=== PATIENT | female | born 1985 | race Hispanic/Latino ===

== ENCOUNTER 2019-11-18 10:03 | Day surgery (SDC) | payer MEDICAID ==
[2019-11-18 10:29] VITALS: BP 140/85; TEMP 98.4; BMI 54.9
--- NOTE | 2019-11-18 12:32 | ULT ---
ULTRASOUND OBSTETRICAL LIMITED: DATE: 11/18/2019 HISTORY: 34-year-old patient with pregestational type 2 diabetes in third trimester. FINDINGS: number: shelby lie: Cephalic Maternal cervix: Obscured Placenta: Anterior. No placenta previa. Amniotic fluid volume: URSULA = 7cm heart rate: 133 bpm anatomy not evaluated biometry: Biparietal diameter (BPD): 8.5 cm 34 w 1 d Head circumference (HC): 31.3 cm 35 w 0 d Abdominal circumference (AC): 32.7 cm 36 w 4 d Femur length (FL): 6.7 cm 34 w 2 d Average ultrasound age (AUA): 35 w 0 d Estimated date of delivery (RASHARD): 12/23/2019 Estimated weight (EFW): 2711 g +/- 401 g IMPRESSION: 1) Live 3rd trimester intrauterine gestation. 2) Estimated gestational age of 35 weeks, 0 days 3) cephalic lie. 4) URSULA 7 cm
--- NOTE | 2019-11-18 12:40 | ULT ---
ULTRASOUND BIOPHYSICAL PROFILE: DATE: 11/18/2019 HISTORY: 34-year-old female in third trimester with pregestational type 2 diabetes FINDINGS: breathin tone: 2 movement: 2 Amniotic fluid volume: 2 IMPRESSION: Normal biophysical profile score of 8 out of 8, excluding the nonstress test.
== END 2019-11-18 13:02 | disposition home or self-care (01) ==
LOC: L&D/OP 10:03
PROVIDERS: ATTEND Family Medicine
DX: O24.313 Unspecified pre-existing diabetes mellitus in pregnancy, third trimester (principal); Z3A.35 35 weeks gestation of pregnancy
CPT/HCPCS: 76815; 76819; 99282

== ENCOUNTER 2019-11-29 09:13 | Day surgery (SDC) | payer MEDICAID ==
[2019-11-29] MEDS ORDERED: hydrALAZINE 20 MG/ML VIAL SLOW IVP PRN (09:37)
[2019-11-29 09:50] VITALS: BP 141/89; TEMP 98.6; BMI 54.5
[2019-11-29 10:20] LABS: Creatinine, Urine 29.88 mg/dL (47-110); Protein, Urine Random Quant Less than 10 mg/dL (1-14)
--- NOTE | 2019-11-29 10:43 | ULT ---
US Biophysical Profile: 11/29/2019 9:38 AM CLINICAL HISTORY: Gestational diabetes. 38 weeks gestation.. COMPARISON: None. FINDINGS: heart rate: 145 bpm. URSULA: 6.1 cm Biophysical profile: 8 of 8 The placenta is anterior in location. The fetus is in vertex presentation. IMPRESSION: Normal biophysical profile
[2019-11-29 11:19] LABS: #Basophils 0.1 thou/uL (0.0-0.2); #Eosinphils 0.1 thou/uL (0.0-0.7); #Lymphocytes 1.9 thou/uL (1.20-3.40); #Monocytes 0.5 thou/uL (0.11-0.59); #Neutrophils 5.8 thou/uL (1.40-6.50); %Basophils 0.6 % (0.0-1.0); %Eosinophils 1.6 % (0.0-10.0); %Lymphocytes 22.3 % (21.0-51.0); %Monocytes 5.9 % (0.0-10.0); %Neutrophils 69.6 % (42.0-75.0); Mean Corpuscular HGB CONC 32.6 g/dL (32.0-36.0); Mean Corpuscular Hemoglobin 29.2 pg (27.0-31.0); Mean Corpuscular Volume 89.7 fL (78.0-98.0); Mean Platelet Volume 10.3 fL (7.4-10.4); Platelet Count 181 thou/uL (130-400); Red Blood Cell (RBC) Count 4.45 mill/uL (4.20-5.40); White Blood Cell (WBC) Count 8.4 thou/uL (4.8-10.8)
[2019-11-29 11:40] LABS: ALT (SGPT) 15 U/L (8-55); AST (SGOT) 19 U/L (5-34); Albumin 3.3 g/dL (3.5-5.0); Alkaline Phosphatase 133 U/L (40-110); Anion Gap 13 mmol/L (10-20); BUN (Urea Nitrogen) 10 mg/dL (7.0-18.7); Bilirubin, Total 0.5 mg/dL (0.2-1.2); Calc. Creatinine Clearance 262 mL/min (70-130); Calcium 8.9 mg/dL (7.8-10.44); Carbon Dioxide 19 mmol/L (22-29); Chloride 106 mmol/L (98-107); Estimated GFR-MDRD Greater than 90; Globulin 3.3 g/dL (2.4-3.5); Glucose 76 mg/dL (70-105); Potassium 4.1 mmol/L (3.5-5.1); Protein, Total 6.6 g/dL (6.0-8.3); Sodium 134 mmol/L (136-145)
--- NOTE | 2019-11-30 09:33 | SS ---
DATE OF ADMISSION: 11/29/2019 DATE OF DISCHARGE: 11/29/2019 Labor and Delivery Triage Note REGULAR PHYSICIAN: Filiberto Mixon MD EVALUATING PHYSICIAN: Carlitos Kyle MD CHIEF COMPLAINT: Sent from Dr. Mixon's office for evaluation. HISTORY OF PRESENT ILLNESS: Ms. Elliot Francois is a 34-year-old , G6, P3, with an estimated date of confinement of 12/28/2019, who presents from Dr. Mixon's office for evaluation. She had had a mildly elevated blood pressure there and is diabetic and he asked that she has been sent here for evaluation. She denies contractions, ruptured membranes, vaginal bleeding, or decreased movement. PAST OBSTETRICAL HISTORY: Includes 3 vaginal deliveries at term. PAST MEDICAL HISTORY: Insulin-requiring diabetes. PAST SURGICAL HISTORY: None. CURRENT MEDICATIONS: 1. vitamins. 2. Levemir 20 q.a.m., 22 q.p.m. 3. NovoLog 15 units given t.i.d. ALLERGIES: NO KNOWN ALLERGIES. SOCIAL HISTORY: Denies tobacco, alcohol, or drug use. FAMILY HISTORY: Unremarkable. REVIEW OF SYSTEMS: Denies nausea, vomiting, fever, chills, ruptured membranes, or vaginal bleeding. PHYSICAL EXAMINATION: VITAL SIGNS: In triage, her blood pressures are consistently 130s/80s. Her last blood pressure is 135/80. GENERAL: She is pleasant and in no acute distress. ABDOMEN: Soft, nontender, and gravid. heart rate tracing is stable, but she is difficult to trace. No decelerations are seen. PELVIC: Deferred. LABORATORY: White count 8.4, hemoglobin and hematocrit 13.0 and 39.9. Platelet count 181,000. Chemistry shows a BUN of 10, a creatinine of 0.54. Glucose is 76, total bilirubin 0.5, AST and ALT are 19 and 15 respectively. Urine random total protein is less than 10. IMAGING: Biophysical profile is 8/8 with an URSULA of 6.1. ASSESSMENT: 1. Thirty-six week intrauterine . 2. Diabetes, on insulin, appears well controlled. 3. Reassuring biophysical profile today. PLAN: Patient will be dismissed to home. She was given PIH precautions and will follow up with Dr. Mixon for her next scheduled visit. Dr. Mixon was notified of the assessment and laboratory evaluation. Job ID: [id number]
== END 2019-11-29 11:55 | disposition home or self-care (01) ==
LOC: L&D/OP 09:13
PROVIDERS: ATTEND Family Medicine
DX: O99.89 Other specified diseases and conditions complicating pregnancy, childbirth and the puerperium (principal); R03.0 Elevated blood-pressure reading, without diagnosis of hypertension; O24.414 Gestational diabetes mellitus in pregnancy, insulin controlled; O09.523 Supervision of elderly multigravida, third trimester; Z3A.36 36 weeks gestation of pregnancy; Z79.4 Long term (current) use of insulin
CPT/HCPCS: 36415; 76819; 80053; 82570; 84156; 85025; 99283

== ENCOUNTER 2019-12-03 08:38 | Outpatient (CLI) | payer MEDICAID, OTHER ==
[2019-12-03 17:19] LABS: SARS-CoV-2 MS2 Positive; SARS-CoV-2 N Gene Negative; SARS-CoV-2 S Gene Negative; SARS-CoV-2 by NAA Not Detected (NotDetected); SARS-CoV-2 orf1ab Negative
== END 2019-12-03 08:39 | disposition home or self-care (01) ==
LOC: LABSCS 08:38
PROVIDERS: ATTEND Family Medicine
DX: Z20.828 Contact with and (suspected) exposure to other viral communicable diseases (principal)
CPT/HCPCS: 87635; U0003

== ENCOUNTER 2019-12-06 19:30 | Inpatient (IN) | payer MEDICAID, SELFPAY ==
[~2019-12-06 19:30] MED LIST: Bupivacaine 0.25% HCL 30 ML VIAL ONE
[2019-12-06] MEDS ORDERED: Butorphanol Tartrate 1 MG/ML VIAL SLOW IVP PRN (21:45)
[2019-12-06] MEDS ORDERED: Lidocaine 1% (PF) 30 ML VIAL SC PRN ×2 (21:45)
[2019-12-06] MEDS ORDERED: HYDROcodone/Acetaminophen 5/325 mg Tablet PO PRN (21:45)
[2019-12-06] MEDS ORDERED: Promethazine HCl 25 MG/ML VIAL IM PRN (21:45)
[2019-12-06] MEDS ORDERED: Penicillin G Potassium 5 MILL.UNITS in Sodium Chloride 0.9% 100 ML IVPB SCH (21:45)
[2019-12-06] MEDS ORDERED: Ondansetron PF 4 MG/2 ML Vial IVP PRN (21:45)
[2019-12-06] MEDS ORDERED: Ibuprofen 800 MG TAB PO PRN (21:45)
[2019-12-06] MEDS ORDERED: NS / Oxytocin 40 units/1000ml 1,000 ML IV PRN (21:45)
[2019-12-06] MEDS ORDERED: Misoprostol 200 MCG TAB PR PRN (21:45)
[2019-12-06] MEDS ORDERED: hydrALAZINE 20 MG/ML VIAL SLOW IVP PRN (21:45)
[2019-12-06] MEDS ORDERED: NS w/ Oxytocin 10 units 500 ML IV SCH (21:45)
[2019-12-06] MEDS ORDERED: Diphenoxylate HCl/Atropine Tablet PO PRN (21:45)
[2019-12-06] MEDS ORDERED: Carboprost 250 MCG/ML AMP IM PRN (21:45)
[2019-12-06 21:49] VITALS: BMI 54.5
[2019-12-06] MEDS: Lactated Ringer's 1,000 ML IV SCH (22:18)
[2019-12-06 22:29] LABS: Hemoglobin 11.7 g/dL (12.0-16.0); Mean Corpuscular HGB CONC 33.3 g/dL (32.0-36.0); Mean Corpuscular Hemoglobin 29.6 pg (27.0-31.0); Mean Platelet Volume 10.5 fL (7.4-10.4); Platelet Count 158 thou/uL (130-400); RBC Distribution Width 13.9 % (11.5-14.5); Red Blood Cell (RBC) Count 3.95 mill/uL (4.20-5.40); White Blood Cell (WBC) Count 9.2 thou/uL (4.8-10.8)
[2019-12-06 22:45] LABS: ALT (SGPT) 15 U/L (8-55); AST (SGOT) 17 U/L (5-34); Alkaline Phosphatase 139 U/L (40-110); Anion Gap 15 mmol/L (10-20); BUN (Urea Nitrogen) 12 mg/dL (7.0-18.7); Bilirubin, Total 0.3 mg/dL (0.2-1.2); Calc. Creatinine Clearance 244 mL/min (70-130); Calcium 8.4 mg/dL (7.8-10.44); Carbon Dioxide 20 mmol/L (22-29); Chloride 108 mmol/L (98-107); Estimated GFR-MDRD Greater than 90; Globulin 2.7 g/dL (2.4-3.5); Glucose 93 mg/dL (70-105); Protein, Total 5.7 g/dL (6.0-8.3); Sodium 139 mmol/L (136-145)
[2019-12-06] MEDS: Misoprostol 100 MCG TAB PO SCH (22:52)
[2019-12-06 23:02] LABS: Syphilis Antibody Nonreactive (Nonreactive); Syphilis Antibody Index 0.04 S/CO (<1.00 Non-Reactive)
[2019-12-06 23:51] LABS: HBSAg Index 0.16 S/CO (0-0.99); Hep B Surf Ag Non-Reactive S/CO (NonReactive)
[2019-12-07] MEDS: Penicillin G 2.5 MILL.units 2.5 MILL.UNITS in Premix Bag 1 BAG IVPB SCH ×2 (03:03→16:08)
[2019-12-07] MEDS: Misoprostol 100 MCG TAB PO SCH ×3 (03:10→16:07)
[2019-12-07] MEDS: Lactated Ringer's 1,000 ML IV SCH ×2 (05:27→09:15)
[2019-12-07] MEDS: NS w/ Oxytocin 10 units 500 ML IV SCH ×2 (07:48→08:18)
[2019-12-07] MEDS ORDERED: Fentanyl 4 mcg/Bup 0.1% Cadd 100 ML ONE (08:35)
[2019-12-07] MEDS ORDERED: EPHEDRINE 25 MG/5 ML SYRINGE SLOW IVP PRN (09:30)
[2019-12-07] MEDS ORDERED: Lactated Ringer's 500 ML IV PRN (09:30)
[2019-12-07] MEDS ORDERED: diphenhydrAMINE 50 MG/ML VIAL IVP PRN (09:30)
[2019-12-07] MEDS ORDERED: Ondansetron PF 4 MG/2 ML Vial IVP PRN ×2 (09:30→13:28)
[2019-12-07] MEDS ORDERED: Naloxone HCl 0.4 mg/ml Vial IVP PRN ×2 (09:30)
[2019-12-07] MEDS ORDERED: Acetaminophen 325 MG TAB PO PRN (09:30)
[2019-12-07] MEDS ORDERED: Communication Order-Pharmacy FS SCH (09:30)
[2019-12-07] MEDS ORDERED: Promethazine HCl 25 MG/ML VIAL IM PRN ×2 (09:30→13:28)
[2019-12-07] MEDS ORDERED: Fentanyl 4 mcg/Bupivacaine 0.1% Cassette 100 ML EPIDURAL SCH (09:30)
[2019-12-07] MEDS ORDERED: NS / Oxytocin 40 units/1000ml 1,000 ML ONE ×2 (11:22→11:23)
[2019-12-07] MEDS ORDERED: Lidocaine 1% (PF) 30 ML VIAL ONE ×2 (11:22→11:23)
[2019-12-07] MEDS ORDERED: Misoprostol 200 MCG TAB ONE (11:23)
[2019-12-07] MEDS ORDERED: Bisacodyl 10 MG SUPP PR PRN (13:28)
[2019-12-07] MEDS ORDERED: Milk Of Magnesia 30 ML UDCUP PO PRN (13:28)
[2019-12-07] MEDS ORDERED: HYDROcodone/Acetaminophen 5/325 mg Tablet PO PRN ×2 (13:28)
[2019-12-07] MEDS ORDERED: diphenhydrAMINE 25 MG CAP PO PRN (13:28)
[2019-12-07] MEDS ORDERED: Preparation H Ointment 28 GM TUBE PR PRN (13:28)
[2019-12-07] MEDS ORDERED: Lanolin Ointment 7 GM TUBE TOP PRN (13:28)
[2019-12-07] MEDS ORDERED: NS / Oxytocin 40 units/1000ml 1,000 ML IV SCH (13:28)
[2019-12-07] MEDS ORDERED: hydrALAZINE 20 MG/ML VIAL SLOW IVP PRN (13:28)
[2019-12-07] MEDS ORDERED: Benzocaine-Menthol 82.5 ML CAN TOP PRN (13:28)
[2019-12-07] MEDS: Ibuprofen 800 MG TAB PO SCH ×2 (16:07→20:43)
[2019-12-07] MEDS: Ferrous Sulfate 325 MG TAB PO SCH (16:09)
[2019-12-07] MEDS: metFORMIN 500 MG TAB PO SCH (16:36)
[2019-12-07] MEDS: Docusate Calcium (SURFAK) 240 MG CAP PO SCH (20:43)
[2019-12-07] MEDS: Insulin Glargine 12 UNITS in Pre-Filled Syringe 1 EACH SC SCH (21:37)
[2019-12-07] MEDS: cloNIDine 0.1 MG TAB PO PRN (21:49)
[2019-12-07] MEDS ORDERED: Sodium Chloride 0.9% 10 ML ONE (22:24)
[2019-12-08 05:58] LABS: Hemoglobin 10.6 g/dL (12.0-16.0); Mean Corpuscular HGB CONC 31.8 g/dL (32.0-36.0); Mean Corpuscular Hemoglobin 28.3 pg (27.0-31.0); Mean Corpuscular Volume 89.2 fL (78.0-98.0); Mean Platelet Volume 10.2 fL (7.4-10.4); Platelet Count 142 thou/uL (130-400); RBC Distribution Width 14.2 % (11.5-14.5); Red Blood Cell (RBC) Count 3.74 mill/uL (4.20-5.40); White Blood Cell (WBC) Count 8.1 thou/uL (4.8-10.8)
[2019-12-08] MEDS: Ibuprofen 800 MG TAB PO SCH ×3 (06:11→21:41)
[2019-12-08] MEDS: Prenatal Vitamin 1 TAB PO SCH (08:37)
[2019-12-08] MEDS: Docusate Calcium (SURFAK) 240 MG CAP PO SCH ×2 (08:37→21:41)
[2019-12-08] MEDS: metFORMIN 500 MG TAB PO SCH ×2 (08:40→17:01)
[2019-12-08] MEDS ORDERED: Adacel (T-DAP) 0.5 ML SYRINGE IM ONE (09:00)
[2019-12-08] MEDS: Ferrous Sulfate 325 MG TAB PO SCH ×2 (10:38→17:14)
[2019-12-08] MEDS: Insulin Glargine 12 UNITS in Pre-Filled Syringe 1 EACH SC SCH (21:41)
[2019-12-08] MEDS: cloNIDine 0.1 MG TAB PO PRN (21:49)
[2019-12-09] MEDS: Ibuprofen 800 MG TAB PO SCH ×2 (06:21→13:49)
[2019-12-09] MEDS: Docusate Calcium (SURFAK) 240 MG CAP PO SCH (09:10)
[2019-12-09] MEDS: metFORMIN 500 MG TAB PO SCH (09:10)
[2019-12-09] MEDS: Prenatal Vitamin 1 TAB PO SCH (09:10)
[2019-12-09] MEDS: Ferrous Sulfate 325 MG TAB PO SCH ×2 (09:11→16:16)
[2019-12-09 12:27] VITALS: BP 127/64; TEMP 98.8
== END 2019-12-09 18:55 | disposition home or self-care (01) | DRG 807 ==
LOC: L&D 21:26 → 3SW 12-07 15:28
PROVIDERS: ADMIT Family Medicine; ATTEND Family Medicine
PROC: 10E0XZZ Delivery of Products of Conception, External Approach (ICD-10-PCS; principal; 2019-12-07)
PROC: 10907ZC Drainage of Amniotic Fluid, Therapeutic from Products of Conception, Via Natural or Artificial Opening (ICD-10-PCS; 2019-12-07)
PROC: 3E033VJ Introduction of Other Hormone into Peripheral Vein, Percutaneous Approach (ICD-10-PCS; 2019-12-07)
PROC: 3E0P7VZ Introduction of Hormone into Female Reproductive, Via Natural or Artificial Opening (ICD-10-PCS; 2019-12-07)
DX: O24.12 Pre-existing type 2 diabetes mellitus, in childbirth (principal); Z37.0 Single live birth; O13.4 Gestational [pregnancy-induced] hypertension without significant proteinuria, complicating childbirth; E11.8 Type 2 diabetes mellitus with unspecified complications; O99.214 Obesity complicating childbirth; E66.9 Obesity, unspecified; O99.824 Streptococcus B carrier state complicating childbirth; Z3A.37 37 weeks gestation of pregnancy
CPT/HCPCS: 36415; 36416; 51702; 80053; 85027; 86780; 86850; 86900; 86901; 87340; J1815; J2001; J2540; J2590; J3490; S0020